=== PATIENT | female | born 1985 | race Caucasian/White ===

== ENCOUNTER → 2021-11-25 10:07 | Outpatient (CLI) | payer BC, SELFPAY ==
--- NOTE | ~2021-11-25 | US_ITS ---
US pelvic complete w TV DATE: 11/25/2021 10:49 INDICATION: Missing IUD strings. Pelvic fullness. TECHNIQUE: Real-time imaging via transabdominal and transvaginal approaches COMPARISON: None FINDINGS: The uterus measures 8.2 cm height, 3.0 cm AP dimension. An IUD is identified within the end ometrial cavity. Endometrial central endometrial complex measures 4 mm AP dimension, normal. There is vascular flow to both ovaries. Bilateral ovarian cysts, measuring up to 1.5 cm on the right. IMPRESSION: IUD within endometrial cavity 1.5 cm right ovarian cyst Reviewed, dictated and finalized at [facility]. Reviewed, dictated and finalized at [facility].
== END ==
PROVIDERS: PCP Obstetrics & Gynecology; Visit Provider Obstetrics & Gynecology
DX: T83.32XA Displacement of intrauterine contraceptive device, initial encounter (principal); R19.00 Intra-abdominal and pelvic swelling, mass and lump, unspecified site; N83.201 Unspecified ovarian cyst, right side
CPT/HCPCS: 76830; 76856